=== PATIENT | female | born 1940 | race Caucasian/White ===

== ENCOUNTER 2022-09-19 17:11 | Inpatient (IN) | payer MEDICARE, MEDICAID ==
[2022-09-19] MEDS ORDERED: Dextrose 5%-Lactated Ringers 1,000 ML IV SCH (18:00)
[2022-09-19 18:13] LABS: BASOPHILS PERCENT AUTO 0.4 % (0.1-1.3); EOSINOPHILS ABSOLUTE AUTO 0.13 K/uL (0.00-0.40); EOSINOPHILS PERCENT AUTO 2.7 % (0.0-5.4); HEMATOCRIT 43.6 % (34.3-46.0); HEMOGLOBIN 14.2 g/dL (11.2-15.5); IMMATURE GRAN PERCENT AUTO 0.2 % (0.0-0.7); LYMPHOCYTES ABSOLUTE AUTO 1.52 K/uL (0.8-3.3); LYMPHOCYTES PERCENT AUTO 31.9 % (11.4-47.7); MEAN CORPUSCULAR HEMOGLOBIN 31.8 pg (31.6-35.5); MEAN CORPUSCULAR HGB CONC 32.6 g/dL (31.6-35.5); MEAN CORPUSCULAR VOLUME 97.8 fL (81.4-99.0); MONOCYTES ABSOLUTE AUTO 0.57 K/uL (0.20-0.90); NEUTROPHILS ABSOLUTE AUTO 2.51 K/uL (1.0-7.6); NEUTROPHILS PERCENT AUTO 52.8 % (40.0-78.1); PLATELET COUNT,PLT 296 K/uL (130-375); RED BLOOD CELL COUNT 4.46 M/uL (3.77-5.24); WHITE BLOOD CELL COUNT,WBC 4.8 K/uL (3.2-11.0)
[2022-09-19 18:14] LABS: BASOPHILS ABSOLUTE AUTO 0.02 K/uL (0.00-0.10); IMMATURE GRAN ABSOLUTE AUTO 0.01 K/uL (0.00-0.23)
[2022-09-19 18:41] LABS: ALANINE AMINOTRANSFERASE,ALT 17 U/L (12-78); ALBUMIN 3.3 g/dL (3.4-5.0); ALKALINE PHOSPHATASE 86 U/L (46-116); ASPARTATE AMNIOTRANSFERASE,AST 17 U/L (15-37); BILIRUBIN TOTAL 0.3 mg/dL (0.2-1.0); BLOOD UREA NITROGEN,BUN 11 mg/dL (7-18); CALCIUM 8.7 mg/dL (8.5-10.1); CARBON DIOXIDE,CO2 28 mmol/L (21-32); CHLORIDE,CL 101 mmol/L (100-108); CREATININE 0.8 mg/dL (0.6-1.0); EST CRCL DRUG DOSING (CG) 54.69 mL/min; ESTIMATED GFR 74 mL/min (>60); GLUCOSE RANDOM 105 mg/dL (74-106); PHOSPHORUS 3.7 mg/dL (2.5-4.9); PRO B-TYPE NATRIUR PEPT,BNPPRO 154 pg/mL (5-450); PROTEIN TOTAL,TP 6.6 g/dL (6.4-8.2); SODIUM,NA 135 mmol/L (140-148)
[2022-09-20] MEDS ORDERED: Dexamethasone 4 MG/ML SDV ONE (06:39)
[2022-09-20] MEDS ORDERED: Succinylcholine 200 MG/10 ML MDV ONE (06:39)
[2022-09-20] MEDS ORDERED: Propofol 200 MG/20 ML SDV ONE (06:39)
[2022-09-20] MEDS ORDERED: Ondansetron 4 MG/2 ML SDV ONE (06:39)
[2022-09-20] MEDS ORDERED: Rocuronium 50 MG/5 ML Vial ONE (06:39)
[2022-09-20] MEDS ORDERED: Neostigmine Methylsulfate 1 MG/ML 5 ML Syringe ONE (06:39)
[2022-09-20] MEDS ORDERED: Glycopyrrolate 0.2 MG/ML 5 ML MDV ONE (06:39)
[2022-09-20] MEDS ORDERED: fentaNYL 250 MCG/5 ML SDV ONE (06:42)
[2022-09-20] MEDS ORDERED: Isosulfan Blue 5 ML SDV ONE (11:01)
[2022-09-20] MEDS ORDERED: Dimethicone 20%/Zinc Oxide 25% 56 GM Spray Bottle TOP PRN (11:33)
[2022-09-20] MEDS ORDERED: Meropenem 500 MG SDV ONE (12:02)
[2022-09-20] MEDS ORDERED: ceFAZolin 1 GM Vial ONE ×2 (12:04)
[2022-09-20] MEDS ORDERED: Lidocaine 1% 2 ML ONE (12:04)
[2022-09-20] MEDS ORDERED: Lactated Ringers 1,000 ML ONE (12:05)
[2022-09-20] MEDS ORDERED: Linezolid 600 MG/300 ML Premix Bag IRR ONE (12:15)
[2022-09-20] MEDS ORDERED: Tranexamic Acid 1,000 MG in Sodium Chloride 0.9% 50 ML IV ONE ×2 (13:00→16:30)
[2022-09-20] MEDS ORDERED: Dextrose 5%-Lactated Ringers 1,000 ML IV SCH (14:30)
[2022-09-20] MEDS: Dextrose 5%-Lactated Ringers 1,000 ML IV SCH (14:36)
[2022-09-20] MEDS ORDERED: Ondansetron 4 MG/2 ML SDV IVPUSH PRN (15:00)
[2022-09-20] MEDS ORDERED: HYDROmorphone 0.5 MG/0.5 ML Syringe IVPUSH PRN (15:00)
[2022-09-20] MEDS ORDERED: HYDROmorphone 1 MG/ML Syringe IV PRN (15:00)
[2022-09-20] MEDS: Acetaminophen 325 MG Tab PO SCH (21:21)
[2022-09-20] MEDS: NAMZARIC PO SCH (21:21)
[2022-09-20] MEDS: ceFAZolin 2 GM in Premix Bag 1 BAG IV SCH (21:22)
[2022-09-21] MEDS: Acetaminophen 325 MG Tab PO SCH ×4 (01:50→19:43)
[2022-09-21] MEDS: Dextrose 5%-Lactated Ringers 1,000 ML IV SCH (02:24)
[2022-09-21] MEDS: ceFAZolin 2 GM in Premix Bag 1 BAG IV SCH ×2 (04:13→11:30)
[2022-09-21] MEDS: Bisacodyl 5 MG Tab PO SCH ×2 (10:43→20:55)
[2022-09-21] MEDS: Docusate Sodium 100 MG Cap PO SCH ×2 (10:43→20:55)
[2022-09-21] MEDS: HYDROmorphone 2 MG Tab PO PRN (10:46)
[2022-09-21] MEDS: NAMZARIC PO SCH (20:55)
[2022-09-22] MEDS: Acetaminophen 325 MG Tab PO SCH ×4 (02:57→20:19)
[2022-09-22] MEDS: Bisacodyl 5 MG Tab PO SCH ×2 (08:52→20:20)
[2022-09-22] MEDS: Docusate Sodium 100 MG Cap PO SCH ×2 (08:52→20:20)
[2022-09-22] MEDS: HYDROmorphone 2 MG Tab PO PRN (17:04)
[2022-09-22] MEDS: NAMZARIC PO SCH (20:20)
[2022-09-23] MEDS: Acetaminophen 325 MG Tab PO SCH ×2 (02:50→08:06)
[2022-09-23] MEDS: HYDROmorphone 2 MG Tab PO PRN (07:02)
[2022-09-23] MEDS: Docusate Sodium 100 MG Cap PO SCH (08:05)
[2022-09-23] MEDS: Bisacodyl 5 MG Tab PO SCH (08:05)
[2022-09-23 10:58] VITALS: BP 138/69; PULSE 52
== END 2022-09-23 12:30 | DRG 581 ==
LOC: JP.MS 17:11
PROVIDERS: ADMIT Surgery; ATTEND Surgery
PROC: 0HTU0ZZ Resection of Left Breast, Open Approach (ICD-10-PCS; principal; 2022-09-22)
PROC: 07B60ZZ Excision of Left Axillary Lymphatic, Open Approach (ICD-10-PCS; 2022-09-22)
PROC: C71LYZZ Planar Nuclear Medicine Imaging of Upper Chest Lymphatics using Other Radionuclide (ICD-10-PCS; 2022-09-22)
DX: C50.912 Malignant neoplasm of unspecified site of left female breast (principal); G30.9 Alzheimer's disease, unspecified; F02.80 Dementia in other diseases classified elsewhere, unspecified severity, without behavioral disturbance, psychotic disturbance, mood disturbance, and anxiety; I10 Essential (primary) hypertension; M51.36 Other intervertebral disc degeneration, lumbar region; Z98.890 Other specified postprocedural states
CPT/HCPCS: 36415; 80053; 83735; 83880; 84100; 85025; 86300; 88307; 88342; 97163-GP; 97530-GP; A9270-GY; J0131; J0330; J0690; J1100; J1170; J2020; J2185; J2405; J2704; J2710; J3010; J3490; J7120; J7121; Q9968

== ENCOUNTER 2022-10-26 10:14 | Inpatient (IN) | payer MEDICARE, MEDICAID ==
[~2022-10-26 10:14] MED LIST: Bupivacaine 0.5% 50 ML MDV ONE; Lidocaine 1% with EPINEPHrine 1:100,000 50 ML MDV ONE
[2022-10-26] MEDS ORDERED: fentaNYL 250 MCG/5 ML SDV ONE (10:59)
[2022-10-26] MEDS ORDERED: Neostigmine Methylsulfate 1 MG/ML 5 ML Syringe ONE (11:00)
[2022-10-26] MEDS ORDERED: Propofol 200 MG/20 ML SDV ONE ×2 (11:00→13:40)
[2022-10-26] MEDS ORDERED: Succinylcholine 200 MG/10 ML MDV ONE (11:00)
[2022-10-26] MEDS ORDERED: Dexamethasone 4 MG/ML SDV ONE (11:00)
[2022-10-26] MEDS ORDERED: Glycopyrrolate 0.2 MG/ML 5 ML MDV ONE (11:00)
[2022-10-26] MEDS ORDERED: Rocuronium 50 MG/5 ML Vial ONE (11:00)
[2022-10-26] MEDS ORDERED: Ondansetron 4 MG/2 ML SDV ONE (11:00)
[2022-10-26 11:07] LABS: PHOSPHORUS 3.6 mg/dL (2.5-4.9)
[2022-10-26] MEDS ORDERED: Dextrose 5%-Lactated Ringers 1,000 ML IV SCH (11:30)
[2022-10-26] MEDS ORDERED: cefOXitin 2 GM in Sodium Chloride 0.9% 50 ML IV ONE (11:45)
[2022-10-26] MEDS ORDERED: Ketamine 500 MG/5 ML MDV IV SCH (12:00)
[2022-10-26] MEDS ORDERED: Ketamine 19 MG in Sodium Chloride 0.9% 19.81 ML IV SCH (12:00)
[2022-10-26] MEDS ORDERED: Lidocaine 1% with EPINEPHrine 1:100,000 50 ML MDV ONE (13:40)
[2022-10-26] MEDS ORDERED: diphenhydrAMINE 50 MG/ML SDV IVPUSH PRN ×2 (14:07→17:00)
[2022-10-26] MEDS ORDERED: Ondansetron 4 MG/2 ML SDV IVPUSH PRN ×2 (14:07→17:00)
[2022-10-26] MEDS ORDERED: diphenhydrAMINE 25 MG Cap PO PRN (14:07)
[2022-10-26] MEDS ORDERED: Naloxone 0.4 MG/ML SDV IVPUSH PRN (14:07)
[2022-10-26] MEDS ORDERED: Ketoconazole 2% Crm 30 GM Tube ONE (14:09)
[2022-10-26] MEDS: Meropenem 500 MG SDV ONE ×2 (14:16→14:54)
[2022-10-26] MEDS: HYDROmorphone/Normal Saline 6 MG/30 ML PCA Vial IV PRN (14:39)
[2022-10-26] MEDS ORDERED: fentaNYL 100 MCG/2 ML SDV ONE (14:43)
[2022-10-26] MEDS ORDERED: Linezolid 600 MG/300 ML Premix Bag IRR ONE (14:54)
[2022-10-26] MEDS ORDERED: Naloxone 0.4 MG/ML SDV IV PRN (15:00)
[2022-10-26] MEDS ORDERED: Labetalol 20 MG/4 ML Syringe IVPUSH PRN (17:00)
[2022-10-26] MEDS ORDERED: hydrOXYzine HCl 50 MG/ML SDV IM PRN (17:00)
[2022-10-26] MEDS: Pantoprazole 40 MG Vial IVPUSH SCH (17:47)
[2022-10-26] MEDS: MVI, Adult with Vitamin K 10 ML, Thiamine 200 MG, Zinc/Copper/Manganese/Selenium 1 ML i... IV SCH ×4 (17:48)
[2022-10-26] MEDS: cefOXitin 2 GM in Sodium Chloride 0.9% 50 ML IV SCH (19:12)
[2022-10-26] MEDS: Citalopram 20 MG Tab PO SCH (21:30)
[2022-10-26] MEDS: Acetaminophen 500 MG Tab PO SCH (21:30)
[2022-10-27] MEDS: Dextrose 5%-Lactated Ringers 1,000 ML IV SCH ×4 (00:12→14:02)
[2022-10-27] MEDS: cefOXitin 2 GM in Sodium Chloride 0.9% 50 ML IV SCH ×4 (01:20→20:25)
[2022-10-27] MEDS: HYDROmorphone/Normal Saline 6 MG/30 ML PCA Vial IV PRN (05:10)
[2022-10-27] MEDS: Acetaminophen 500 MG Tab PO PRN (05:30)
[2022-10-27 06:58] LABS: A/G RATIO 0.8 (1.2-2.2); ALANINE AMINOTRANSFERASE,ALT 21 U/L (12-78); ALBUMIN 2.6 g/dL (3.4-5.0); ALKALINE PHOSPHATASE 57 U/L (46-116); ASPARTATE AMNIOTRANSFERASE,AST 24 U/L (15-37); BILIRUBIN TOTAL 0.2 mg/dL (0.2-1.0); BLOOD UREA NITROGEN,BUN 7 mg/dL (7-18); CALCIUM 8.3 mg/dL (8.5-10.1); CARBON DIOXIDE,CO2 26 mmol/L (21-32); CHLORIDE,CL 102 mmol/L (100-108); EST CRCL DRUG DOSING (CG) 43.75 mL/min; ESTIMATED GFR 56 mL/min (>60); GLUCOSE RANDOM 161 mg/dL (74-106); MAGNESIUM 1.9 mg/dL (1.8-2.4); PHOSPHORUS 3.9 mg/dL (2.5-4.9); POTASSIUM,K 4.8 mmol/L (3.6-5.2); PRO B-TYPE NATRIUR PEPT,BNPPRO 256 pg/mL (5-450); PROTEIN TOTAL,TP 5.7 g/dL (6.4-8.2); SODIUM,NA 138 mmol/L (140-148)
[2022-10-27 07:00] LABS: HEMATOCRIT 39.9 % (34.3-46.0); HEMOGLOBIN 13.1 g/dL (11.2-15.5); IMMATURE GRAN ABSOLUTE AUTO 0.05 K/uL (0.00-0.23); IMMATURE GRAN PERCENT AUTO 0.5 % (0.0-0.7); LYMPHOCYTES ABSOLUTE AUTO 0.59 K/uL (0.8-3.3); LYMPHOCYTES PERCENT AUTO 6.1 % (11.4-47.7); MEAN CORPUSCULAR HEMOGLOBIN 31.5 pg (31.6-35.5); MEAN CORPUSCULAR HGB CONC 32.8 g/dL (31.6-35.5); MEAN CORPUSCULAR VOLUME 95.9 fL (81.4-99.0); MONOCYTES ABSOLUTE AUTO 0.72 K/uL (0.20-0.90); MONOCYTES PERCENT AUTO 7.4 % (3.3-12.6); NEUTROPHILS ABSOLUTE AUTO 8.35 K/uL (1.0-7.6); PLATELET COUNT,PLT 218 K/uL (130-375); RED BLOOD CELL COUNT 4.16 M/uL (3.77-5.24); WHITE BLOOD CELL COUNT,WBC 9.7 K/uL (3.2-11.0)
[2022-10-27 07:55] LABS: ANION GAP 14.8 mmol/L (5.0-14.0)
[2022-10-27] MEDS ORDERED: Lactated Ringers 500 ML IV ONE ×2 (08:47→13:15)
[2022-10-27] MEDS: Celecoxib 200 MG Cap PO SCH ×2 (08:59→20:35)
[2022-10-27] MEDS: Bisacodyl 5 MG Tab PO SCH ×2 (10:00→20:35)
[2022-10-27] MEDS: Docusate Sodium 100 MG Cap PO SCH ×2 (10:00→20:35)
[2022-10-27] MEDS ORDERED: Potassium Chloride 20 MEQ Tab.ER PO ONE (14:00)
[2022-10-27] MEDS ORDERED: Furosemide 40 MG/4 ML VIAL IVPUSH ONE (14:00)
[2022-10-27] MEDS: Acetaminophen 500 MG Tab PO SCH ×3 (14:03→21:55)
[2022-10-27] MEDS: MVI, Adult with Vitamin K 10 ML, Thiamine 200 MG, Zinc/Copper/Manganese/Selenium 1 ML i... IV SCH ×4 (16:55)
[2022-10-27] MEDS: Pantoprazole 40 MG Vial IVPUSH SCH (17:00)
[2022-10-27] MEDS: Citalopram 20 MG Tab PO SCH (20:35)
[2022-10-27] MEDS: Memantine 10 MG Tab PO SCH (20:36)
[2022-10-27] MEDS: Donepezil 10 MG Tab PO SCH (20:36)
[2022-10-28] MEDS: cefOXitin 2 GM in Sodium Chloride 0.9% 50 ML IV SCH (01:56)
[2022-10-28] MEDS: Dextrose 5%-Lactated Ringers 1,000 ML IV SCH ×2 (04:22→19:00)
[2022-10-28] MEDS: Acetaminophen 500 MG Tab PO SCH ×4 (05:25→21:15)
[2022-10-28] MEDS ORDERED: Lidocaine 1% with EPINEPHrine 1:100,000 50 ML MDV ONE (06:42)
[2022-10-28] MEDS ORDERED: Bupivacaine 0.5% 50 ML MDV ONE (06:42)
[2022-10-28] MEDS ORDERED: Meropenem 500 MG SDV ONE (06:42)
[2022-10-28] MEDS ORDERED: Propofol 200 MG/20 ML SDV ONE ×2 (06:50→08:07)
[2022-10-28] MEDS: Celecoxib 200 MG Cap PO SCH ×2 (09:48→21:15)
[2022-10-28] MEDS: Memantine 10 MG Tab PO SCH ×2 (09:48→21:16)
[2022-10-28] MEDS: Bisacodyl 5 MG Tab PO SCH ×2 (09:48→21:15)
[2022-10-28] MEDS: Docusate Sodium 100 MG Cap PO SCH ×2 (09:48→21:16)
[2022-10-28] MEDS: Pantoprazole 40 MG Vial IVPUSH SCH (17:57)
[2022-10-28] MEDS: Donepezil 10 MG Tab PO SCH (21:15)
[2022-10-28] MEDS: Citalopram 20 MG Tab PO SCH (21:15)
[2022-10-29] MEDS: Dextrose 5%-Lactated Ringers 1,000 ML IV SCH ×2 (05:18→16:05)
[2022-10-29] MEDS: Acetaminophen 500 MG Tab PO SCH ×3 (05:26→22:22)
[2022-10-29] MEDS: Docusate Sodium 100 MG Cap PO SCH ×2 (08:11→20:43)
[2022-10-29] MEDS: Celecoxib 200 MG Cap PO SCH ×2 (08:11→20:43)
[2022-10-29] MEDS: Memantine 10 MG Tab PO SCH ×2 (08:11→20:43)
[2022-10-29] MEDS: Bisacodyl 5 MG Tab PO SCH ×2 (08:11→20:43)
[2022-10-29] MEDS ORDERED: Bisacodyl 5 MG Tab PO SCH (09:00)
[2022-10-29] MEDS ORDERED: Docusate Sodium 100 MG Cap PO SCH (09:00)
[2022-10-29] MEDS: HYDROmorphone/Normal Saline 6 MG/30 ML PCA Vial IV PRN (12:49)
[2022-10-29] MEDS: Pantoprazole 40 MG Tab.CR PO SCH (16:36)
[2022-10-29] MEDS: Citalopram 20 MG Tab PO SCH (20:43)
[2022-10-29] MEDS: Donepezil 10 MG Tab PO SCH (20:43)
[2022-10-30] MEDS: Acetaminophen 500 MG Tab PO SCH ×3 (06:09→22:23)
[2022-10-30] MEDS: Docusate Sodium 100 MG Cap PO SCH ×2 (08:13→20:08)
[2022-10-30] MEDS: Memantine 10 MG Tab PO SCH ×2 (08:13→20:08)
[2022-10-30] MEDS: Celecoxib 200 MG Cap PO SCH ×2 (08:13→20:07)
[2022-10-30] MEDS: Bisacodyl 5 MG Tab PO SCH ×2 (08:14→20:08)
[2022-10-30] MEDS: Cyclobenzaprine 10 MG Tab PO PRN ×2 (10:35→20:04)
[2022-10-30] MEDS: Pantoprazole 40 MG Tab.CR PO SCH (17:00)
[2022-10-30] MEDS: Donepezil 10 MG Tab PO SCH (20:07)
[2022-10-30] MEDS: Citalopram 20 MG Tab PO SCH (20:07)
[2022-10-31] MEDS: Acetaminophen 500 MG Tab PO SCH ×3 (06:59→21:22)
[2022-10-31] MEDS: Memantine 10 MG Tab PO SCH ×2 (08:23→21:22)
[2022-10-31] MEDS: Docusate Sodium 100 MG Cap PO SCH ×2 (08:23→21:22)
[2022-10-31] MEDS: Bisacodyl 5 MG Tab PO SCH ×2 (08:23→21:22)
[2022-10-31] MEDS: Celecoxib 200 MG Cap PO SCH ×2 (08:23→21:22)
[2022-10-31] MEDS: Cyclobenzaprine 10 MG Tab PO PRN ×2 (08:28→17:57)
[2022-10-31] MEDS: traMADol 50 MG Tab PO PRN ×2 (12:16→19:17)
[2022-10-31] MEDS: Pantoprazole 40 MG Tab.CR PO SCH (16:16)
[2022-10-31] MEDS: Acetaminophen 500 MG Tab PO PRN (19:16)
[2022-10-31] MEDS: Donepezil 10 MG Tab PO SCH (21:22)
[2022-10-31] MEDS: Citalopram 20 MG Tab PO SCH (21:22)
[2022-11-01 06:13] VITALS: BP 139/63; PULSE 55
[2022-11-01] MEDS: Acetaminophen 500 MG Tab PO SCH (07:56)
[2022-11-01] MEDS: Celecoxib 200 MG Cap PO SCH (08:01)
[2022-11-01] MEDS: Bisacodyl 5 MG Tab PO SCH (08:01)
[2022-11-01] MEDS: Docusate Sodium 100 MG Cap PO SCH (08:01)
[2022-11-01] MEDS: Memantine 10 MG Tab PO SCH (08:01)
[2022-11-01] MEDS: traMADol 50 MG Tab PO PRN (09:28)
== END 2022-11-01 10:39 | disposition home or self-care (01) | DRG 741 ==
LOC: JP.SDSSCHI 10:14 → JP.MS 15:50
PROVIDERS: ADMIT Surgery; ATTEND Surgery
PROC: 0UT90ZZ Resection of Uterus, Open Approach (ICD-10-PCS; principal; 2022-10-26)
PROC: 0UB70ZZ Excision of Bilateral Fallopian Tubes, Open Approach (ICD-10-PCS; 2022-10-26)
PROC: 0UB20ZZ Excision of Bilateral Ovaries, Open Approach (ICD-10-PCS; 2022-10-26)
PROC: 07BC0ZX Excision of Pelvis Lymphatic, Open Approach, Diagnostic (ICD-10-PCS; 2022-10-26)
PROC: 0DBW0ZX Excision of Peritoneum, Open Approach, Diagnostic (ICD-10-PCS; 2022-10-26)
PROC: 0WQF0ZZ Repair Abdominal Wall, Open Approach (ICD-10-PCS; 2022-10-28)
DX: C54.1 Malignant neoplasm of endometrium (principal); F32.A Depression, unspecified; F41.9 Anxiety disorder, unspecified; K21.9 Gastro-esophageal reflux disease without esophagitis; M54.50 Low back pain, unspecified; G89.29 Other chronic pain; Z20.822 Contact with and (suspected) exposure to COVID-19; Z96.649 Presence of unspecified artificial hip joint; M51.36 Other intervertebral disc degeneration, lumbar region; G30.9 Alzheimer's disease, unspecified; F02.80 Dementia in other diseases classified elsewhere, unspecified severity, without behavioral disturbance, psychotic disturbance, mood disturbance, and anxiety; I10 Essential (primary) hypertension; Z90.10 Acquired absence of unspecified breast and nipple; Z85.3 Personal history of malignant neoplasm of breast; Z79.899 Other long term (current) drug therapy; Z98.890 Other specified postprocedural states
CPT/HCPCS: 36415; 80053; 83735; 83880; 84100; 85025; 86304; 87070; 87075; 87077; 87186; 87205; 88112; 88305; 88309; 93005; A9270-GY; C9113; J0131; J0171; J0330; J0694; J1100; J1170; J1940; J2020; J2185; J2405; J2704; J2710; J2795; J3010; J3410; J3411; J3490; J7120; J7121; U0002

== ENCOUNTER 2022-11-12 10:03 | Emergency (ER) | payer MEDICARE, MEDICAID ==
[2022-11-12 10:08] VITALS: PULSE 60
[2022-11-12 11:04] VITALS: BP 115/50
== END 2022-11-12 11:59 ==
LOC: JP.ED 10:03
DX: Z48.89 Encounter for other specified surgical aftercare (principal); I10 Essential (primary) hypertension; G30.9 Alzheimer's disease, unspecified; E66.9 Obesity, unspecified; Z68.34 Body mass index [BMI] 34.0-34.9, adult
CPT/HCPCS: 99284

== ENCOUNTER 2023-01-04 01:31 | Inpatient (IN) | payer MEDICARE, MEDICAID ==
[2023-01-04] MEDS ORDERED: HYDROmorphone 0.5 MG/0.5 ML Syringe IM ONE (03:14)
[2023-01-04] MEDS ORDERED: Acetaminophen/oxyCODONE 325-5 MG Tab PO ONE (04:26)
[2023-01-04 04:42] LABS: BASOPHILS PERCENT AUTO 0.2 % (0.1-1.3); EOSINOPHILS ABSOLUTE AUTO 0.24 K/uL (0.00-0.40); EOSINOPHILS PERCENT AUTO 2.3 % (0.0-5.4); HEMATOCRIT 37.4 % (34.3-46.0); IMMATURE GRAN ABSOLUTE AUTO 0.04 K/uL (0.00-0.23); IMMATURE GRAN PERCENT AUTO 0.4 % (0.0-0.7); LYMPHOCYTES ABSOLUTE AUTO 1.58 K/uL (0.8-3.3); LYMPHOCYTES PERCENT AUTO 15.3 % (11.4-47.7); MEAN CORPUSCULAR HEMOGLOBIN 30.1 pg (31.6-35.5); MEAN CORPUSCULAR HGB CONC 32.1 g/dL (31.6-35.5); MEAN CORPUSCULAR VOLUME 93.7 fL (81.4-99.0); MONOCYTES ABSOLUTE AUTO 1.02 K/uL (0.20-0.90); MONOCYTES PERCENT AUTO 9.9 % (3.3-12.6); NEUTROPHILS ABSOLUTE AUTO 7.41 K/uL (1.0-7.6); NEUTROPHILS PERCENT AUTO 71.9 % (40.0-78.1); PLATELET COUNT,PLT 328 K/uL (130-375); RED BLOOD CELL COUNT 3.99 M/uL (3.77-5.24); WHITE BLOOD CELL COUNT,WBC 10.3 K/uL (3.2-11.0)
[2023-01-04 04:59] LABS: BASOPHILS ABSOLUTE AUTO 0.02 K/uL (0.00-0.10)
[2023-01-04 05:02] LABS: A/G RATIO 0.9 (1.2-2.2); ALANINE AMINOTRANSFERASE,ALT 22 U/L (12-78); ALKALINE PHOSPHATASE 81 U/L (46-116); ASPARTATE AMNIOTRANSFERASE,AST 20 U/L (15-37); BILIRUBIN TOTAL 0.4 mg/dL (0.2-1.0); BLOOD UREA NITROGEN,BUN 25 mg/dL (7-18); CALCIUM 8.8 mg/dL (8.5-10.1); CARBON DIOXIDE,CO2 32 mmol/L (21-32); CHLORIDE,CL 100 mmol/L (100-108); CREATININE 0.7 mg/dL (0.6-1.0); EST CRCL DRUG DOSING (CG) 61.43 mL/min; ESTIMATED GFR 86 mL/min (>60); GLUCOSE RANDOM 99 mg/dL (74-106); PROTEIN TOTAL,TP 6.5 g/dL (6.4-8.2); SODIUM,NA 136 mmol/L (140-148)
[2023-01-04 05:37] LABS: APPEARANCE,URINE CLEAR (CLEAR); BILIRUBIN,URINE NEGATIVE (NEGATIVE); COLOR,URINE YELLOW (YELLOW); GLUCOSE,URINE NEGATIVE (NEGATIVE); KETONES,URINE NEGATIVE (NEGATIVE); LEUKOCYTE ESTERASE,URINE TRACE (NEGATIVE); NITRITE,URINE NEGATIVE (NEGATIVE); OCCULT BLOOD,URINE NEGATIVE (NEGATIVE); PH,URINE 8.5 (5.0-8.0); PROTEIN,URINE NEGATIVE (NEGATIVE); UROBILINOGEN,URINE 0.2 EU/dL (0.2-1.0)
[2023-01-04 05:43] LABS: AMORPHOUS SEDIMENT,URINE NOT SEEN; BACTERIA,URINE FEW; EPITHELIAL CELLS,URINE RARE; MUCUS,URINE NOT SEEN; RBC,URINE 0-5 (0-5); WBC,URINE 0-5 (0-5)
[2023-01-04] MEDS ORDERED: HYDROmorphone 0.5 MG/0.5 ML Syringe IVPUSH PRN (07:48)
[2023-01-04] MEDS ORDERED: HYDROmorphone 0.5 MG/0.5 ML Syringe IVPUSH ONE (10:17)
[2023-01-04] MEDS ORDERED: fentaNYL 100 MCG/2 ML SDV ONE (12:49)
[2023-01-04] MEDS ORDERED: Propofol 200 MG/20 ML SDV ONE (12:49)
[2023-01-04] MEDS ORDERED: Midazolam 1 MG/ML 2 ML SDV ONE (12:49)
[2023-01-04] MEDS ORDERED: Bupivacaine 0.5%/EPINEPHrine 1:200,000 50 ML MDV ONE (13:47)
[2023-01-04] MEDS ORDERED: Albuterol 0.083% 2.5 MG/3 ML Neb Soln NEB PRN (16:03)
[2023-01-04] MEDS ORDERED: Sodium Chloride 0.9% 10 ML Syringe FLUSH PRN (16:03)
[2023-01-04] MEDS ORDERED: Polyethylene Glycol 3350 Powder 17 GM Packet PO PRN (16:03)
[2023-01-04] MEDS ORDERED: Naloxone 0.4 MG/ML SDV IVPUSH PRN (16:03)
[2023-01-04] MEDS ORDERED: Ondansetron 4 MG/2 ML SDV IV PRN (16:03)
[2023-01-04] MEDS ORDERED: Sodium Chloride 0.9% 10 ML ONE ×2 (16:30→16:52)
[2023-01-04] MEDS ORDERED: ceFAZolin 1 GM Vial ONE (16:30)
[2023-01-04] MEDS ORDERED: ePHEDrine 50 MG/ML SDV ONE (16:33)
[2023-01-04] MEDS ORDERED: Phenylephrine 1% 10 MG/ML SDV ONE (16:51)
[2023-01-04] MEDS: Sodium Chloride 0.9% 1,000 ML IV SCH (18:16)
[2023-01-04] MEDS: HYDROmorphone 0.5 MG/0.5 ML Syringe IVPUSH PRN (19:41)
[2023-01-04] MEDS: oxyCODONE 5 MG Tab PO PRN (20:25)
[2023-01-04] MEDS: Donepezil 10 MG Tab PO SCH (20:26)
[2023-01-04] MEDS: Citalopram 20 MG Tab PO SCH (20:26)
[2023-01-04] MEDS: Memantine 10 MG Tab PO SCH (20:26)
[2023-01-04] MEDS: Melatonin 3 MG Tab PO SCH (20:28)
[2023-01-04] MEDS: Aspirin 325 MG Tab.EC PO SCH (20:28)
[2023-01-04] MEDS ORDERED: Non-Formulary Medication 1 Each (Memantine Hcl/Donepezil Hcl [Namzaric 28 Mg-10 Mg Capsule PO SCH (21:00)
[2023-01-05] MEDS: Sodium Chloride 0.9% 1,000 ML IV SCH ×2 (02:22→10:26)
[2023-01-05] MEDS: oxyCODONE 5 MG Tab PO PRN ×5 (02:22→20:09)
[2023-01-05 05:52] LABS: HEMATOCRIT 35.9 % (34.3-46.0); HEMOGLOBIN 11.6 g/dL (11.2-15.5); MEAN CORPUSCULAR HEMOGLOBIN 30.2 pg (31.6-35.5); MEAN CORPUSCULAR HGB CONC 32.3 g/dL (31.6-35.5); MEAN CORPUSCULAR VOLUME 93.5 fL (81.4-99.0); RED BLOOD CELL COUNT 3.84 M/uL (3.77-5.24); WHITE BLOOD CELL COUNT,WBC 7.6 K/uL (3.2-11.0)
[2023-01-05 06:03] LABS: CALCIUM 8.7 mg/dL (8.5-10.1); CREATININE 0.7 mg/dL (0.6-1.0); EST CRCL DRUG DOSING (CG) 61.43 mL/min; POTASSIUM,K 4.9 mmol/L (3.6-5.2)
[2023-01-05 06:04] LABS: ANION GAP 11.9 mmol/L (5.0-14.0)
[2023-01-05] MEDS: Acetaminophen 325 MG Tab PO PRN ×3 (09:17→20:09)
[2023-01-05] MEDS: Anastrozole 1 MG Tab PO SCH (09:17)
[2023-01-05] MEDS: Aspirin 325 MG Tab.EC PO SCH ×2 (09:17→20:16)
[2023-01-05] MEDS: Memantine 10 MG Tab PO SCH ×2 (09:20→20:15)
[2023-01-05] MEDS: HYDROmorphone 0.5 MG/0.5 ML Syringe IVPUSH PRN (09:20)
[2023-01-05] MEDS ORDERED: Docusate Sodium 100 MG Cap PO PRN (12:58)
[2023-01-05] MEDS ORDERED: Sodium Chloride 0.9% 1,000 ML IV SCH (13:00)
[2023-01-05] MEDS: Polyethylene Glycol 3350 Powder 17 GM Packet PO SCH ×2 (13:24→20:14)
[2023-01-05] MEDS: Melatonin 3 MG Tab PO SCH (20:12)
[2023-01-05] MEDS: Donepezil 10 MG Tab PO SCH (20:16)
[2023-01-05] MEDS: Citalopram 20 MG Tab PO SCH (20:16)
[2023-01-06] MEDS: Acetaminophen 325 MG Tab PO SCH ×5 (00:53→23:43)
[2023-01-06] MEDS: oxyCODONE 5 MG Tab PO PRN ×4 (04:54→20:52)
[2023-01-06 04:58] LABS: CALCIUM 8.4 mg/dL (8.5-10.1); CREATININE 0.8 mg/dL (0.6-1.0); EST CRCL DRUG DOSING (CG) 53.96 mL/min; POTASSIUM,K 4.3 mmol/L (3.6-5.2)
[2023-01-06 05:20] LABS: ANION GAP 11.3 mmol/L (5.0-14.0)
[2023-01-06] MEDS: Aspirin 325 MG Tab.EC PO SCH ×2 (09:28→20:50)
[2023-01-06] MEDS: Memantine 10 MG Tab PO SCH ×2 (09:28→20:52)
[2023-01-06] MEDS: Polyethylene Glycol 3350 Powder 17 GM Packet PO SCH ×2 (09:29→20:51)
[2023-01-06] MEDS: Anastrozole 1 MG Tab PO SCH (09:29)
[2023-01-06] MEDS ORDERED: Polyethylene Glycol 3350 Powder 17 GM Packet PO ONE (10:30)
[2023-01-06] MEDS: Citalopram 20 MG Tab PO SCH (20:51)
[2023-01-06] MEDS: Donepezil 10 MG Tab PO SCH (20:51)
[2023-01-06] MEDS: Melatonin 3 MG Tab PO SCH (20:51)
[2023-01-07] MEDS: Acetaminophen 325 MG Tab PO SCH ×2 (05:41→13:05)
[2023-01-07] MEDS: oxyCODONE 5 MG Tab PO PRN (09:08)
[2023-01-07] MEDS: Anastrozole 1 MG Tab PO SCH (09:09)
[2023-01-07] MEDS: Aspirin 325 MG Tab.EC PO SCH (09:10)
[2023-01-07] MEDS: Memantine 10 MG Tab PO SCH (09:10)
[2023-01-07] MEDS: Polyethylene Glycol 3350 Powder 17 GM Packet PO SCH (09:11)
[2023-01-07] MEDS ORDERED: Sodium Phosphate,Monobasic/Sodium Phosphate,Dibasic Enema 133 ML Bottle RECTAL PRN (09:35)
[2023-01-07] MEDS ORDERED: Bisacodyl 10 MG Supp RECTAL ONE (10:00)
[2023-01-07 13:06] VITALS: BP 114/76; PULSE 76
== END 2023-01-07 12:40 | DRG 481 ==
LOC: JP.ED 01:31 → JP.MS 12:45
PROVIDERS: ADMIT Hospitalist; ATTEND Hospitalist
PROC: 0QSB34Z Reposition Right Lower Femur with Internal Fixation Device, Percutaneous Approach (ICD-10-PCS; principal; 2023-01-04)
DX: S72.001A Fracture of unspecified part of neck of right femur, initial encounter for closed fracture (principal); F02.83 Dementia in other diseases classified elsewhere, unspecified severity, with mood disturbance; G30.9 Alzheimer's disease, unspecified; I10 Essential (primary) hypertension; R32 Unspecified urinary incontinence; R00.1 Bradycardia, unspecified; F32.A Depression, unspecified; E66.9 Obesity, unspecified; M19.90 Unspecified osteoarthritis, unspecified site; Z90.10 Acquired absence of unspecified breast and nipple; Z90.710 Acquired absence of both cervix and uterus; Z90.89 Acquired absence of other organs; Z79.891 Long term (current) use of opiate analgesic; Z79.899 Other long term (current) drug therapy; Z98.890 Other specified postprocedural states; Z68.39 Body mass index [BMI] 39.0-39.9, adult; W05.0XXA Fall from non-moving wheelchair, initial encounter
CPT/HCPCS: 36415; 73502-26-RT; 73502-RT; 73700-RT; 76000; 76377; 80048; 80053; 81001; 85025; 85027; 93005; 96372; 96374; 96376; 97110-GP; 97161-GP; 99222; 99231; 99238; 99285; 99285-25; A9270-GY; C1713; C1769; J0690; J1170; J2250; J2370; J2704; J3010; J3490; J7030; U0002

== ENCOUNTER 2023-01-28 07:14 | Inpatient (IN) | payer MEDICARE, MEDICAID ==
[~2023-01-28 07:14] MED LIST changes: -Lidocaine 1% with EPINEPHrine 1:100,000 50 ML MDV ONE
[2023-01-28 07:38] LABS: HEMATOCRIT 34.8 % (34.3-46.0); MEAN CORPUSCULAR HEMOGLOBIN 28.9 pg (31.6-35.5); MEAN CORPUSCULAR HGB CONC 31.6 g/dL (31.6-35.5); MEAN CORPUSCULAR VOLUME 91.6 fL (81.4-99.0); RED BLOOD CELL COUNT 3.8 M/uL (3.77-5.24); WHITE BLOOD CELL COUNT,WBC 5.7 K/uL (3.2-11.0)
[2023-01-28 07:58] LABS: A/G RATIO 0.6 (1.2-2.2); ALANINE AMINOTRANSFERASE,ALT 20 U/L (12-78); ALBUMIN 2.7 g/dL (3.4-5.0); ALKALINE PHOSPHATASE 113 U/L (46-116); ASPARTATE AMNIOTRANSFERASE,AST 18 U/L (15-37); BILIRUBIN TOTAL 0.3 mg/dL (0.2-1.0); BLOOD UREA NITROGEN,BUN 31 mg/dL (7-18); CALCIUM 8.9 mg/dL (8.5-10.1); CARBON DIOXIDE,CO2 32 mmol/L (21-32); CHLORIDE,CL 98 mmol/L (100-108); CREATININE 0.8 mg/dL (0.6-1.0); ESTIMATED GFR 73 mL/min (>60); GLUCOSE RANDOM 86 mg/dL (74-106); POTASSIUM,K 4.4 mmol/L (3.6-5.2); PROTEIN TOTAL,TP 6.9 g/dL (6.4-8.2); SODIUM,NA 136 mmol/L (140-148)
[2023-01-28 08:00] LABS: ANION GAP 10.4 mmol/L (5.0-14.0)
[2023-01-28] MEDS ORDERED: Lactated Ringers 1,000 ML IV SCH (08:00)
[2023-01-28] MEDS ORDERED: ceFAZolin 2 GM in Premix Bag 1 BAG IV ONE (08:00)
[2023-01-28] MEDS ORDERED: Nozin Nasal Sanitizer NASBOTH SCH (09:00)
[2023-01-28] MEDS ORDERED: Propofol 200 MG/20 ML SDV ONE ×2 (09:34→11:00)
[2023-01-28] MEDS ORDERED: fentaNYL 100 MCG/2 ML SDV ONE ×2 (09:34→11:39)
[2023-01-28] MEDS ORDERED: Sodium Chloride 0.9% 10 ML ONE (10:07)
[2023-01-28] MEDS ORDERED: ePHEDrine 50 MG/ML SDV ONE (10:07)
[2023-01-28] MEDS ORDERED: Ondansetron 4 MG Tab.DIS PO PRN (11:45)
[2023-01-28] MEDS ORDERED: Morphine 2 MG/ML SYRINGE IVPUSH PRN (11:45)
[2023-01-28] MEDS: oxyCODONE 5 MG Tab PO PRN ×2 (15:05→18:44)
[2023-01-28] MEDS: Acetaminophen 325 MG Tab PO SCH ×2 (15:05→20:11)
[2023-01-28] MEDS: Sodium Chloride 0.9% 1,000 ML IV SCH ×2 (17:20→23:11)
[2023-01-28] MEDS: ceFAZolin 1 GM in Premix Bag 1 BAG IV SCH (17:31)
[2023-01-28] MEDS: Nozin Nasal Sanitizer NASBOTH SCH (20:11)
[2023-01-28] MEDS: Donepezil 10 MG Tab PO SCH (20:12)
[2023-01-28] MEDS: Docusate Sodium 100 MG Cap PO SCH (20:12)
[2023-01-28] MEDS: Citalopram 20 MG Tab PO SCH (20:12)
[2023-01-28] MEDS: Memantine 10 MG Tab PO SCH (20:12)
[2023-01-28] MEDS ORDERED: GLUTAMINE PO SCH (21:00)
[2023-01-28] MEDS ORDERED: [UNRECOGNIZED DRUG - OTHER] PO SCH (21:00)
[2023-01-28] MEDS ORDERED: ARGININE PO SCH (21:00)
[2023-01-29] MEDS: ceFAZolin 1 GM in Premix Bag 1 BAG IV SCH ×2 (01:38→09:49)
[2023-01-29] MEDS: Acetaminophen 325 MG Tab PO SCH ×4 (01:48→20:06)
[2023-01-29 05:53] LABS: HEMATOCRIT 28.1 % (34.3-46.0); MEAN CORPUSCULAR HEMOGLOBIN 28.9 pg (31.6-35.5); MEAN CORPUSCULAR VOLUME 90.4 fL (81.4-99.0); RED BLOOD CELL COUNT 3.11 M/uL (3.77-5.24); WHITE BLOOD CELL COUNT,WBC 6.6 K/uL (3.2-11.0)
[2023-01-29] MEDS: Sodium Chloride 0.9% 1,000 ML IV SCH ×2 (07:32→16:00)
[2023-01-29] MEDS: oxyCODONE 5 MG Tab PO PRN ×2 (07:50→13:47)
[2023-01-29] MEDS: Magnesium Hydroxide 400 MG/5 ML Susp 30 ML Cup PO PRN (07:50)
[2023-01-29] MEDS: Memantine 10 MG Tab PO SCH ×2 (09:52→20:07)
[2023-01-29] MEDS: Nozin Nasal Sanitizer NASBOTH SCH ×2 (09:52→20:06)
[2023-01-29] MEDS: Docusate Sodium 100 MG Cap PO SCH ×2 (09:52→20:07)
[2023-01-29] MEDS: Divalproex Sodium 250 MG Tab.ER PO SCH (09:52)
[2023-01-29] MEDS: Anastrozole 1 MG Tab PO SCH (09:52)
[2023-01-29] MEDS: Donepezil 10 MG Tab PO SCH (20:07)
[2023-01-29] MEDS: Citalopram 20 MG Tab PO SCH (20:07)
[2023-01-30] MEDS: Sodium Chloride 0.9% 1,000 ML IV SCH ×3 (00:04→20:44)
[2023-01-30] MEDS: oxyCODONE 5 MG Tab PO PRN ×5 (00:59→23:55)
[2023-01-30] MEDS: Acetaminophen 325 MG Tab PO SCH ×4 (00:59→20:25)
[2023-01-30] MEDS: Divalproex Sodium 250 MG Tab.ER PO SCH (08:52)
[2023-01-30] MEDS: Memantine 10 MG Tab PO SCH ×2 (08:52→20:26)
[2023-01-30] MEDS: Nozin Nasal Sanitizer NASBOTH SCH ×2 (08:52→20:25)
[2023-01-30] MEDS: Docusate Sodium 100 MG Cap PO SCH ×2 (08:52→20:26)
[2023-01-30] MEDS: Anastrozole 1 MG Tab PO SCH (08:53)
[2023-01-30] MEDS: Magnesium Hydroxide 400 MG/5 ML Susp 30 ML Cup PO PRN (16:50)
[2023-01-30] MEDS: Donepezil 10 MG Tab PO SCH (20:26)
[2023-01-30] MEDS: Citalopram 20 MG Tab PO SCH (20:26)
[2023-01-31] MEDS: Acetaminophen 325 MG Tab PO SCH ×4 (02:30→20:41)
[2023-01-31] MEDS: oxyCODONE 5 MG Tab PO PRN ×2 (05:39→13:46)
[2023-01-31] MEDS: Nozin Nasal Sanitizer NASBOTH SCH ×2 (08:17→20:41)
[2023-01-31] MEDS: Divalproex Sodium 250 MG Tab.ER PO SCH (08:18)
[2023-01-31] MEDS: Anastrozole 1 MG Tab PO SCH (08:18)
[2023-01-31] MEDS: Docusate Sodium 100 MG Cap PO SCH ×2 (08:18→20:41)
[2023-01-31] MEDS: Memantine 10 MG Tab PO SCH ×2 (08:19→20:41)
[2023-01-31] MEDS: Magnesium Hydroxide 400 MG/5 ML Susp 30 ML Cup PO PRN ×2 (08:23→20:44)
[2023-01-31] MEDS: traMADol 50 MG Tab PO PRN (08:23)
[2023-01-31] MEDS: Sodium Chloride 0.9% 1,000 ML IV SCH (09:49)
[2023-01-31] MEDS: Citalopram 20 MG Tab PO SCH (20:41)
[2023-01-31] MEDS: Donepezil 10 MG Tab PO SCH (20:42)
[2023-02-01] MEDS: Acetaminophen 325 MG Tab PO SCH ×2 (03:38→07:53)
[2023-02-01] MEDS: traMADol 50 MG Tab PO PRN (05:07)
[2023-02-01 06:30] VITALS: BP 128/53; PULSE 66
[2023-02-01] MEDS: oxyCODONE 5 MG Tab PO PRN (07:52)
[2023-02-01] MEDS: Nozin Nasal Sanitizer NASBOTH SCH (09:22)
[2023-02-01] MEDS: Docusate Sodium 100 MG Cap PO SCH (09:22)
[2023-02-01] MEDS: Anastrozole 1 MG Tab PO SCH (09:22)
[2023-02-01] MEDS: Memantine 10 MG Tab PO SCH (09:22)
[2023-02-01] MEDS: Divalproex Sodium 250 MG Tab.ER PO SCH (09:22)
== END 2023-02-01 11:00 | DRG 470 ==
LOC: JP.SDS 07:14 → JP.MS 11:45
PROVIDERS: ADMIT Specialist; ATTEND Specialist
PROC: 0SRR0JA Replacement of Right Hip Joint, Femoral Surface with Synthetic Substitute, Uncemented, Open Approach (ICD-10-PCS; principal; 2023-01-28 08:30)
DX: T84.090A Other mechanical complication of internal right hip prosthesis, initial encounter (principal); K21.9 Gastro-esophageal reflux disease without esophagitis; M16.12 Unilateral primary osteoarthritis, left hip; E66.01 Morbid (severe) obesity due to excess calories; T84.194A Other mechanical complication of internal fixation device of right femur, initial encounter; Z20.822 Contact with and (suspected) exposure to COVID-19; Z90.710 Acquired absence of both cervix and uterus; Z98.890 Other specified postprocedural states; I10 Essential (primary) hypertension; F03.90 Unspecified dementia, unspecified severity, without behavioral disturbance, psychotic disturbance, mood disturbance, and anxiety; Z79.899 Other long term (current) drug therapy; Y83.8 Other surgical procedures as the cause of abnormal reaction of the patient, or of later complication, without mention of misadventure at the time of the procedure
CPT/HCPCS: 27236; 36415; 80053; 85027; A9270; C1713; C1776 ×5; J0690; J2704 ×2; J3010 ×2; J3490; J7120; U0002; 20680; 72170; 72170-26; 97110-GP; 97161-GP; 97530-GP; J2270; J7030